=== PATIENT | female | born 1990 | race Caucasian/White ===

== ENCOUNTER → 2020-06-12 16:26 | Outpatient (CLI) | payer OTHER, SELFPAY | PROVIDERS: PCP Family Medicine; Visit Provider Orthopaedic Surgery Orthopaedic Trauma | DX: Z20.828 Contact with and (suspected) exposure to other viral communicable diseases (principal) | CPT/HCPCS: U0003 ==

== ENCOUNTER 2020-11-21 15:30 | Outpatient (RCR) | payer OTHER, SELFPAY | END 2020-11-21 15:35 | disposition home or self-care (01) | LOC: PT 15:30 | PROVIDERS: Visit Provider Orthopaedic Surgery Orthopaedic Trauma | DX: S82.101A Unspecified fracture of upper end of right tibia, initial encounter for closed fracture (principal) | CPT/HCPCS: 20561; 97010; 97014; 97016; 97033; 97035; 97110; 97140; 97163; 97164; G0283 ==